=== PATIENT | female | born 1985 | race Caucasian/White ===

== ENCOUNTER 2020-06-30 11:00 | Emergency (ER) | payer MEDICAID ==
[~2020-06-30] VITALS: Ht 157.5 cm; Wt 102.3 kg
[2020-06-30 11:25] LABS: BASOPHILS # (AUTO) 0.1 X10'3 (0-0.2); BASOPHILS % (AUTO) 0.8 % (0-1); EOSINOPHILS # (AUTO) 0.1 X10'3 (0-0.9); EOSINOPHILS % (AUTO) 1.1 % (0-6); HEMATOCRIT 43.2 % (35.0-45.0); HEMOGLOBIN 14.5 g/dl (12.0-16.0); LYMPHOCYTES # (AUTO) 2.6 X10'3 (1.1-4.8); LYMPHOCYTES % (AUTO) 27.9 % (21-51); MEAN CORPUSCULAR HEMOGLOBIN 31.6 PG (27.0-31.0); MEAN CORPUSCULAR HGB CONC 33.6 g/dL (33.0-36.5); MEAN CORPUSCULAR VOLUME 94.2 FL (78-98); MEAN PLATELET VOLUME 7.6 FL (7.4-10.4); MONOCYTES # (AUTO) 0.3 X10'3 (0-0.9); MONOCYTES % (AUTO) 3.4 % (2-12); NEUTROPHILS # (AUTO) 6.1 X10'3 (1.8-7.7); NEUTROPHILS % (AUTO) 66.8 % (42-75); PLATELET COUNT 220 X10'3 (140-440); RED BLOOD COUNT 4.59 X10'6 (4.20-5.60); RED CELL DISTRIBUTION WIDTH 14.1 % (11.5-14.5); WHITE BLOOD COUNT 9.2 X10'3 (4.5-11.0)
[2020-06-30 11:39] LABS: ALANINE AMINOTRANSFERASE 25 U/L (12-78); ALBUMIN 3.6 G/DL (3.4-5.0); ALKALINE PHOSPHATASE 63 IU/L (46-116); ANION GAP 10 (8-16); ASPARTATE AMINO TRANSFERASE 18 U/L (10-37); BILIRUBIN,TOTAL 0.5 MG/DL (0.1-1.0); BLOOD UREA NITROGEN 13 MG/DL (7-18); BUN/CREATININE RATIO 16.3 (6.6-38.0); CALCIUM 9.1 MG/DL (8.5-10.1); CHLORIDE 105 MMOL/L (99-107); GLUCOSE 125 MG/DL (70-104); POTASSIUM 3.7 MMOL/L (3.5-5.1); SODIUM 140 MMOL/L (135-145); TOTAL CARBON DIOXIDE 25.4 MMOL/L (24-32); TOTAL PROTEIN 7.2 G/DL (6.4-8.2); eGFR 81 ML/MIN
[2020-06-30] MEDS ORDERED: ondansetron/PF 4mg/2ml inj IV ONE (11:50)
[2020-06-30 12:07] LABS: URINE HCG NEGATIVE (NEG)
--- NOTE | 2020-06-30 12:31 | NUR ---
BREAKING PRIMARY NURSE AT THIS TIME ,NO DISTRESS NOTED HR 66 SINUS RYTHM,PT DENIES ANY CONCERN,VITALS UPDATED.PT ASKED ABOUT HER URINE PREG RESULT INFORMED ITS NEGATIVE,PT VERBALIZED UNDERSTANDING DENIES ANY CONCERN.
--- NOTE | 2020-06-30 13:20 | NUR ---
pt. observered walking across the street with an energy dink in her hand, and was drinking it.
[2020-06-30 13:25] VITALS: BP 128/85
== END 2020-06-30 13:27 | disposition left against medical advice (07) ==
LOC: ER 11:00
DX: I47.1 Supraventricular tachycardia (principal)
CPT/HCPCS: 36415; 71045; 80053; 81025; 83880; 84484; 85025; 93005; 96374; 99285; J2405

== ENCOUNTER 2023-01-29 15:11 | Emergency (ER) | payer MEDICAID ==
[~2023-01-29] VITALS: Ht 157.5 cm; Wt 87.4 kg
[2023-01-29 15:57] VITALS: BP 157/93
[2023-01-29] MEDS ORDERED: CEPH250T PO (16:38)
== END 2023-01-29 16:45 | disposition home or self-care (01) ==
LOC: ER 15:12
DX: L03.119 Cellulitis of unspecified part of limb (principal); Z88.1 Allergy status to other antibiotic agents; Z79.899 Other long term (current) drug therapy
CPT/HCPCS: 99283

== ENCOUNTER 2024-01-06 09:13 | Emergency (ER) | payer MEDICAID ==
[~2024-01-06] VITALS: Ht 157.5 cm; Wt 117.3 kg
[2024-01-06] MEDS ORDERED: CEPH-585 PO (10:25)
[2024-01-06] MEDS ORDERED: PERM60CR19 TOP (10:25)
[2024-01-06] MEDS ORDERED: SULF1TAB49 PO (10:25)
[2024-01-06 10:48] VITALS: BP 150/87; PULSE 88; RESP 18; TEMP 98.7; O2SAT 97
== END 2024-01-06 10:49 | disposition home or self-care (01) ==
LOC: ER 09:14
DX: L03.115 Cellulitis of right lower limb (principal); B86 Scabies; Z88.8 Allergy status to other drugs, medicaments and biological substances
CPT/HCPCS: 99283

== ENCOUNTER 2024-04-12 14:16 | Outpatient (CLI) | payer OTHER | END 2024-04-12 23:59 | disposition home or self-care (01) | LOC: MRI 14:16 | PROVIDERS: ATTEND Student in an Organized Health Care Education/Training Program | DX: S83.241A Other tear of medial meniscus, current injury, right knee, initial encounter (principal); S83.8X1A Sprain of other specified parts of right knee, initial encounter; M22.41 Chondromalacia patellae, right knee; M25.461 Effusion, right knee; M67.461 Ganglion, right knee; M25.561 Pain in right knee; X58.XXXA Exposure to other specified factors, initial encounter; Y93.89 Activity, other specified; Y92.89 Other specified places as the place of occurrence of the external cause; Y99.8 Other external cause status | CPT/HCPCS: 73721 ==

== ENCOUNTER 2025-06-13 12:16 | Emergency (ER) | payer MEDICAID ==
[~2025-06-13] VITALS: Ht 157.5 cm; Wt 90.8 kg
[2025-06-13 12:21] VITALS: BP 154/101; PULSE 76; RESP 16; TEMP 98.6; O2SAT 98
--- NOTE | 2025-06-13 19:10 | Physician Documentation ---
History of Present Illness ~ Chief Complaint: Bite-insect Stated Complaint: SPIDER BITE ON BACK OF LT LEG Time Seen by MD: 12:49 Source: patient Mode of Arrival: POV Exam Limitations: no limitations HPI 40-year-old female concerned about a spider bite on the back of her left calf which she states she noticed about four days ago. She states the areas really itchy and painful." No pre arrival treatment. She decided to come to the ER today not because the area is bigger or anything is worse with regards to her left calf but she states she felt dizzy and checked her blood pressure at work and was very concerned about how high her blood pressure was. She also states she feels achy and she has been having a lot more muscle cramps in her extremities and she feels very fatigued and these symptoms started today. She was not sure if the area on her left calf was related to her other symptoms which started today. Tetanus within 5 years?: Yes Medication Reconciliation Allergies: Coded Allergies: erythromycin base (Unverified Allergy, Unknown, highly sensitive, 01/29/23) Past Medical History Past Medical History: No Pertinent History Past Surgical History: noncontributory Alcohol Use: None Drug Use: none Occupation: employed Review of Systems All Other Systems at this time: Reviewed and Negative Physical Exam Vital Signs: Temperature: 98.6, Source: Oral, Heart Rate: 76, Respiratory Rate: 16, BP: 154/101, Pulse Oximetry: 98, Weight: 90.800 Oxygen Flow Rate: 0 Physical Exam General Appearance: Alert, WD/WN. NAD. HEENT: NCAT, PERRL, EOMI. Neck: Supple, trachea midline. Cardiovascular: RRR. No m/r/g. Lungs: CTAB. Breathing unlabored Extremities: Left calf there is an area where skin appears a mixture of erythematous and violaceous, borders of this area are no symmetrical, but rather following a distribution that appears the skin has been scratched as there are chawla consistent with excoriation. Areas not indurated or fluctuant. No proximal erythematous streak. Skin: Warm/dry, normal color Neurological: Alert and oriented x4, normal gait. Psychiatric: Affect congruent with mood. Progress Results/Orders Results/Orders Orders - LINETTE GAN Covid19 Binax Poc Result Entry (06/13/25 13:35) Vital Signs 06/13/25 12:21 Temp 98.6 Pulse 76 Resp 16 B/P (MAP) 154/101 Pulse Ox 98 O2 Flow Rate 0 Laboratory Tests Test 06/13/25 13:39 SARS-CoV-2 Antigen (Rapid) Negative Medical Decision Making Differential Dx:Considerations: Include: Abrasion, Allergic reaction, Anaphylaxis, Cellulitis, Contusion, Fracture, Hematoma, Insect envenomation, Laceration, Neurovascular injury, Punture wound, Retained foreign body, Urticaria, Other Departure Disposition: HOME / SELF CARE / HOMELESS Impression: Primary Impression: Erythematous rash Additional Impressions: Fatigue Qualified Codes: R53.83 - Other fatigue Body aches Additional Instructions: Patient left prior to completion of workup. Patient appeared upset when I first evaluated her that ice stated that the area on her left calf did not appear to be cellulitic to me but more of a localized dermatitis especially considering how. Patient did not agree with my assessment and I told her this was completely fine I would get my supervising physician or my colleague to evaluate to see what their thoughts were. I did want to get a COVID test due to how fatigue she felt with reports of body aches that came on today especially since we have seen a little bit of an increase in COVID cases recently. Patient appeared to be fine with this when her COVID came back negative I went back into the room however patient had left. Referrals: NO PRIMARY CARE PROVIDER (PCP) Education Educated: Patient Educated regarding: diagnosis, treatment, need for follow up Signature Scribe Signature: x Attestation: LINETTE Garcia Jun 13, 2025 19:10
== END 2025-06-13 14:56 | disposition left against medical advice (07) ==
LOC: ER 12:17
DX: R21 Rash and other nonspecific skin eruption (principal); R53.83 Other fatigue; R42 Dizziness and giddiness; Z88.1 Allergy status to other antibiotic agents; Z20.822 Contact with and (suspected) exposure to COVID-19
CPT/HCPCS: 36415; 87811; 99283

== ENCOUNTER 2025-10-16 01:44 | Emergency (ER) | payer MEDICAID ==
[~2025-10-16] VITALS: Ht 157.5 cm; Wt 92.2 kg
--- NOTE | 2025-10-16 02:05 | ELECTROCARDIOGRAPH REPORT ---
[facility] Test Date: 2025-10-16 Test Time: 02:02:03 Pat Name: MERVAT LOMBARDO Department: [facility]- Patient ID: [facility]-[id number] Room: Gender: F Linesperson: : 1985 Requested By: JANET ALVARES Order Number: [id number] Reading MD: Dr. CORINE Hernandez Measurements Intervals [place] Rate: 83 P: 85 [place]: 161 QRS: 67 QRSD: 76 T: 64 QT: 362 QTc: 426 Interpretive Statements Sinus rhythm Probable left atrial enlargement Low voltage, precordial leads Electronically Signed On 10-17-2025 16:52:[address] CORINE Hernandez Please click the below link to view image of tracing.
--- NOTE | 2025-10-16 03:15 | Physician Documentation ---
History of Present Illness ~ Chief Complaint: Rapid Heartbeat Stated Complaint: TACHYCARDIA Time Seen by MD: 03:15 HPI Patient presents to the emergency room for evaluation of rapid heartbeat. She has history of SVT. She woke up tonight feeling her heart racing as if that has SVT therefore she called for an ambulance. In route ambulance found patient to be in SVT and adenosine was administered six, 12 with conversion back to sinus rhythm. Patient states now she feels exactly like herself and denies any chest pain. She states she is likely dehydrated as she has been drinking this evening. Denies caffeine use. She does have a primary care provider but not a cooker operator. Medication Reconciliation Allergies: Coded Allergies: erythromycin base (Unverified Allergy, Unknown, highly sensitive, 10/16/25) Past Medical History Past Medical History: No Pertinent History Past Surgical History: noncontributory Alcohol Use: None Drug Use: none Occupation: employed Review of Systems ROS All review of systems negative except as per HPI Physical Exam Vital Signs: Temperature: 98.1, Source: Oral, Heart Rate: 80, Respiratory Rate: 14, BP: 134/80, Pulse Oximetry: 99, Weight: 92.200 Physical Exam General: Patient is awake, alert, oriented x4 in no acute distress and well appearing.~ Head: Normocephalic and atraumatic. Eyes: Conjunctival normal. EOMI. PERRL. ENT: Mucous membranes moist. Neck: Supple, trachea is midline. Chest: Clear to auscultation bilaterally without rales, rhonchi, or wheezes. There is no accessory muscle use or retractions. Cardiac: RRR without murmurs, gallops, or rubs. Extremities: Normal strength. Normal range of motion. No deformities or edema. No calf tenderness to palpation Progress Results/Orders Results/Orders Orders - MELO OWUSU MD Hs Troponin I W Calculations (10/16/25 03:55) Hs Troponin I W Calculations (10/16/25 04:55) Completed Orders - MELO OWUSU MD Cbc/Diff (10/16/25 01:55) Electrocardiogram (10/16/25 01:55) BMP (10/16/25 01:55) Hs Troponin I W Calculations (10/16/25 01:55) Metoprolol Succinate Er Tablet (Toprol X (10/16/25 03:30) Medications Received in ER Medications (Trade) Dose Ordered Sig/Cecilia Route PRN Reason Start Time Stop Time Status Last Admin Dose Admin (Toprol XL (24-hour) tablet) 50 mg ONCE ONCE PO 10/16/25 03:30 10/16/25 03:31 DC 10/16/25 03:58 50 MG Vital Signs 10/16/25 10/16/25 10/16/25 10/16/25 01:47 01:47 02:00 03:00 Temp 98.1 Pulse 80 76 74 Resp 18 14 16 16 B/P (MAP) 134/80 128/74 (92) 124/70 (88) Pulse Ox 99 99 99 10/16/25 10/16/25 03:57 04:07 Temp 98.1 Pulse 72 80 Resp 15 18 B/P (MAP) 111/79 (90) 134/80 (98) Pulse Ox 96 99 O2 Flow Rate 0 Laboratory Tests Test 10/16/25 03:00 White Blood Count 7.6 Red Blood Count 4.07 L Hemoglobin 13.0 Hematocrit 38.1 Mean Corpuscular Volume 93.8 Mean Corpuscular Hemoglobin 32.0 H Mean Corpuscular Hemoglobin Concent 34.1 Red Cell Distribution Width 13.6 Platelet Count 205 Mean Platelet Volume 7.1 L Neutrophils (%) (Auto) 54.8 Lymphocytes (%) (Auto) 37.2 Monocytes (%) (Auto) 6.0 Eosinophils (%) (Auto) 1.2 Basophils (%) (Auto) 0.8 Neutrophils # (Auto) 4.1 Lymphocytes # (Auto) 2.8 Monocytes # (Auto) 0.5 Eosinophils # (Auto) 0.1 Basophils # (Auto) 0.1 CBC Comment Sodium Level 144 Potassium Level 3.6 Chloride Level 110 H Carbon Dioxide Level 27.1 Anion Gap 7 L Blood Urea Nitrogen 8 Creatinine 0.66 Estimated GFR/1.73 m2 > 90 BUN/Creatinine Ratio 12.1 Glucose Level 103 Calcium Level 7.6 L Troponin I High Sensitivity 47 Albumin 3.1 L Chemistry Comments EKG/XRAY/CT/US/VASC/MRI EKG : Additional Comment EKG interpreted by myself shows time of 0202, rate 83, sinus rhythm, normal axis, no ST changes Medical Decision Making Additional information obtaine: old records Findings Patient presents to the emergency room with rapid heartbeat as per HPI. Differentials include but are not limited to ACS, atrial fibrillation, SVT, panic attack therefore emergent labs indicated. Labs reassuring. Troponin negative, EKG reassuring. Given patient's history of SVT and he had not feel patient requires admission. The need to follow up with her doctor discussed as well as ER precautions. 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 No chest pain Differential Dx:Considerations: Include: angina / NV, atrial dysrhythmia, atrial fibrillation, atrial flutter, MAT, PACs, PSVT, sinus tachycardia, WPW, 1st degree AV block, 2nd degree AVB-type 1, 2nd degree AVB-type 2, 3rd degree AV block, PVCs, torsades de pointes, ventricular fibrillation, ventricular tachycardia, other Differential Dx:Considerations: Include anxiety/panic attack, Include digoxin toxicity, Include electrolyte disorder, Include heart failure, Include hyperthyroidism, Include hyperventilation, Include hypoxia, Include pacemaker malfunction, Include pulmonary embolus, Include renal failure, Include other Departure Disposition: 01 HOME / SELF CARE / HOMELESS Impression: Primary Impression: SVT (supraventricular tachycardia) Condition: Improved Discharge Instructions: Supraventricular Tachycardia, Adult Additional Instructions: Call your doctor tomorrow to arrange for follow up. You need to get established with a cooker operator. Inquire about a stress test. Return to the emergency room for any chest pain, return of symptoms or any other disconcerting symptoms. Referrals: NO PRIMARY CARE PROVIDER (PCP) Signature Scribe Signature: No scribe Attestation: The note accurately reflects work and decisions made by me.Melo Owusu MD 10/16/25 03:28 MELO OWUSU MD Oct 16, 2025 03:15
[2025-10-16 03:16] LABS: MEAN PLATELET VOLUME 7.1 FL (7.4-10.4); RED CELL DISTRIBUTION WIDTH 13.6 % (11.5-14.5)
[2025-10-16] MEDS: metoprolol succinate 25mg (24-HOUR) SR. Tablet PO ONE (03:58)
[2025-10-16 04:06] LABS: CREATININE 0.66 MG/DL (0.40-0.90); TOTAL CARBON DIOXIDE 27.1 MMOL/L (24-32); eCRCL 88 ML/MIN; eGFR > 90 ML/MIN
[2025-10-16 04:24] VITALS: BP 112/74; PULSE 79; RESP 16; TEMP 97.8; O2SAT 97
== END 2025-10-16 04:25 | disposition home or self-care (01) ==
LOC: ER 01:44
DX: I47.10 Supraventricular tachycardia, unspecified (principal); Z88.1 Allergy status to other antibiotic agents; Z86.79 Personal history of other diseases of the circulatory system
CPT/HCPCS: 36415; 80048; 84484; 85025; 93005; 99285